=== PATIENT | male | born 1950 | race Caucasian/White ===

== ENCOUNTER 2018-12-22 09:10 | Emergency (ER) | payer MEDICARE, MEDICAID ==
[~2018-12-22] VITALS: Ht 182.9 cm; Wt 97.1 kg
[~2018-12-22 09:10] MED LIST: ALEVE220 MG PO; ASPIRIN325 MG PO; HALCION0.25 MG PO; HUMALOG100 UNITS/ IV; IMURAN50 MG PO; LANTUS100 UNITS/ SUB-Q; LISINOPRIL-HCT1 EAC1 PO; LISINOPRIL20 MG PO; LISINOPRIL40 MG PO; MEN'S MULTI-VI1 EACH PO; NOVOLOG100 UNIT/1 SUB-Q; OMEPRAZOLE20 M1 PO; TEMAZEPAM30 MG PO; TRAZODONE HCL100 MG PO; VITAMIN B-121000 MCG PO; VITAMIN B-6100 MG PO; XANAX0.25 MG PO; ZANTAC150 MG PO
--- OUTSIDE RECORDS SUMMARY | 2018-12-22 09:12 | XMS ---
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 EEdil VISIT COUNT (12 MO.) 1 RAINA Abrams TOTAL 1 NOTE: Visits indicate total known visits. ED/UCC VISIT TRACKING (12 MO.) 12/22/2018 09:[address] [facility] TYPE: Emergency COMPLAINT: - L ANKLE PAIN/INJURY INPATIENT VISIT TRACKING (12 MO.) No inpatient visits to display in this time frame [email or web address]
[2018-12-22] MEDS ORDERED: CHANTIX1 MG PO (09:26)
[2018-12-22] MEDS ORDERED: TOUJEO SOL300 UNIT/1 SUB-Q (09:26)
== END 2018-12-22 11:14 | disposition home or self-care (01) ==
LOC: ED 09:10
DX: S93.402A Sprain of unspecified ligament of left ankle, initial encounter (principal); S93.602A Unspecified sprain of left foot, initial encounter; R55 Syncope and collapse; I10 Essential (primary) hypertension; F41.9 Anxiety disorder, unspecified; E10.9 Type 1 diabetes mellitus without complications; Z86.19 Personal history of other infectious and parasitic diseases; F17.200 Nicotine dependence, unspecified, uncomplicated; Z90.49 Acquired absence of other specified parts of digestive tract; Z79.4 Long term (current) use of insulin; Z79.899 Other long term (current) drug therapy; Z79.82 Long term (current) use of aspirin; W19.XXXA Unspecified fall, initial encounter
CPT/HCPCS: 36415; 73590; 73630; 80053; 85025; 99283

== ENCOUNTER 2020-04-08 08:14 | Inpatient (IN) | payer MEDICARE, MEDICAID, OTHER ==
[~2020-04-08] VITALS: Ht 182.9 cm; Wt 97.1 kg
[~2020-04-08 08:14] MED LIST changes: +ASPIR 8181 MG PO; -ASPIRIN325 MG PO; +CHANTIX1 MG PO; +TOUJEO SOL300 UNIT/1 SUB-Q
--- OUTSIDE RECORDS SUMMARY | 2020-04-08 08:18 | XMS ---
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 Jacquelyn VISIT COUNT (12 MO.) 1 RAINA Abrams TOTAL 1 NOTE: Visits indicate total known visits. ED/UCC VISIT TRACKING (12 MO.) 04/08/2020 08:15 [facility] TYPE: Emergency COMPLAINT: - ABNORMAL LAB RESULTS INPATIENT VISIT TRACKING (12 MO.) No inpatient visits to display in this time frame [id number]
--- NOTE | 2020-04-08 11:45 | NUR ---
PATIENT ARRIVES WITH ANDREW NICHOLS/WIND FARM OPERATIONS MANAGER FROM EMERGENCY DEPARTMENT FOR ADMISSION TO ROOM 126 IN CCU FOR TREATMENT OF HYPONATREMIA AND HYPOMAGNESIUMIA. ASSESSMENT COMPLETED. VITAL SIGNS OBTAINED.
[2020-04-08] MEDS ORDERED: AZATHIOPRINE50 MG PO (13:32)
[2020-04-08] MEDS ORDERED: LISINOPRIL40 MG PO (13:33)
--- NOTE | 2020-04-08 13:34 | NUR ---
ER COVID SWAB COLLECTED NO COMPLICATIONS
--- NOTE | 2020-04-08 15:41 | EKG ---
[facility] [address] [place] [address] Signed Normal sinus rhythm Right bundle branch block Abnormal ECG When compared with ECG of 25-JAN-2017 09:06, T wave inversion now evident in Anterior leads Confirmed by BULMARO PIMENTEL MD ([id number]) on 04/08/2020 3:41:03 PM Electronically Signed By: BULMARO PIMENTEL MD 04/08/20 1541 PATIENT NAME: ROLLY LEWIS Electrocardiogram DATE OF : 50 PHYSICIAN: BULMARO PIMENTEL MD REPORT #: [id number] REPORT IS CONFIDENTIAL AND NOT TO BE RELEASED WITHOUT AUTHORIZATION
--- NOTE | 2020-04-08 17:16 | NUR ---
ASSESSMENT COMPLETED, URINAL EMPTIED. DENIES OTHER NEEDS AT THIS TIME. CALL LIGHT IN REACH, BED RAILS UP X2.
--- NOTE | 2020-04-08 17:45 | NUR ---
HAND TREMORS NOTED WHILE IN PATIENT ROOM. DR. PIMENTEL NOTIFIED OF PATIENT ETOH USE AT HOME. REQUEST PRN ATIVAN ORDERS FOR POSSIBLE ETOH WITHDRAWAL SYMPTOMS.
--- NOTE | 2020-04-08 18:02 | NUR ---
MED REC COMPLETE
--- NOTE | 2020-04-08 20:45 | NUR ---
PATIENT PROVIDED WITH EVENING MEDS. PATIENT IS ALERT AND INVOLVED WITH CARE. ACCU CHECK DONE, PATIENT CALCULATES WHAT HIS HOME DOSE WOULD BE. WHICH IS 5 UNITS, CONSISTENT WITH THE SLIDING SCALE. PATIENT REPORTS TAKING HIS 10 UNITS LONG ACTING INSULIN AT BEDTIME. ASSURED HIM TAKING IT IN THE MORNING WOULD BE OKAY. PATIENT AGREEABLE. PRN INSOMNIA MEDS PROVIDED PER REQUEST. PATIENT'S VS STABLE. URINE OUTPUT QS, USING URNAL. TOLERATING ROOM AIR. LUNGS ARE CLEAR. NO COUGH. CIWA LESS THAN 5. PATIENT PROVIDED WITH EAR PLUGS PER REQUEST. NO OTHER NEEDS AT THIS TIME. CALL LIGHT IN REACH.
--- NOTE | 2020-04-08 23:00 | NUR ---
PATIENT APPEARS TO BE SLEEPING SOUNDLY. VS STABLE. CALL LIGHT IN REACH.
--- NOTE | 2020-04-09 01:00 | NUR ---
PATIENT WOKE WHEN RN ENTERED THE ROOM. REPORTS DIFFICULTY SLEEPING DUE TO NOISES THE BED MAKES. BED UNPLUGGED. OFFERED PATIENT TO SLEEP ON THE COUCH. PATIENT WILL TRY THE BED BEING UNPLUGGED AND ALERT STAFF IF HE CONTINUES TO HAVE TROUBLE SLEEPING. URNAL EMPTIED. IV FLUIDS PER ORDER, SITE WNL. CALL LIGHT IN REACH.
--- NOTE | 2020-04-09 02:30 | NUR ---
PATIENT APPEARS TO BE SLEEPING. VS STABLE.
--- NOTE | 2020-04-09 04:45 | NUR ---
PATIENT CONTINUES TO SLEEP SOUNDLY. ALLOWED PATIENT TO REST. IV SITE WNL. VS STABLE.
--- NOTE | 2020-04-09 06:00 | NUR ---
LAB IN FOR MORNING DRAW. PATIENT REPORTS HAVING SLEPT "OKAY FOR AN HOUR OR TWO". REQUEST BREAKFAST MENU WHICH WAS PROVIDED. PATIENT DENIES ANY CONCERNS THIS MORNING. VS STABLE. IV FLUIDS PER ORDER. URNAL EMPTIED.
--- NOTE | 2020-04-09 07:30 | NUR ---
RECEIVED REPORT FROM BALL MILL MIXER. pt ORDERING BREAKFAST. CALL LIGHT WITHIN REACH.
--- NOTE | 2020-04-09 08:20 | NUR ---
ANDREW ZEPEDA IN TO DO BLOOD SUGAR AND GIVEN INSULIN (SEE MAR). pt REQUESTED "A FEW MORE UNITS" OF INSULIN.
--- NOTE | 2020-04-09 09:00 | NUR ---
CALL LIGHT ON. URINAL EMPTIED. BREAKFAST TRAY REMOVED, BREAKFAST RECORDED. PROVIDED FRESH WATER. pt STANDING AT BEDSIDE TO VOID. CALL LIGHT WITHIN REACH.
--- NOTE | 2020-04-09 09:20 | NUR ---
IN TO DO ASSESSMENT. VITALS RECORDED. ASSESMENT DONE. pt DENIES PAIN AND SOB. DISCUSSED INSULIN, pt OKAY TO TAKE WHAT IS ORDERED. MEDICATIONS GIVEN (SEE MAR). MD IN ROOM TO ASSESS, pt WILL THINK ABOUT STAYING TO DETOX. NO FURTHER REQUESTS AT THIS TIME. CALL LIGHT WITHIN REACH.
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
--- NOTE | 2020-04-09 15:02 | NUR ---
1445: PT TRANSFER TO ROOM 120 FROM CCU IN WHICH THE PT AMBULATED. HE IS ON TELE #4 SR WITH A 1ST DEGREE BLOCK AT 80. VITAL SIGNS STABLE AND THE PT DENIES ANY PAIN OR SOB. PT ORIENTED TO HIS ROOM AND THE USE OF THE CALL CUADRA. PT INSTRUCTED TO CALL BEFORE GETTING UP HE APPEARS SLIGHTLY UNSTEADY ON HIS FEET. IV INFUSING NS AT 75 ML/HR. SEE ASSESSMENT.
--- NOTE | 2020-04-09 16:21 | NUR ---
Pt states his cbg needs check as he is "high". Blood sugar checked and it is 182.
--- NOTE | 2020-04-09 21:13 | NUR ---
Pt in bed, wearing ear plugs, Coop with assessment, appropriate. On room air, lungs clear, tele#[address], SR reading. Pt has indwelling glucose meter noted on r lower abd, pt says is not working. Voiding QS dark yellow urine. turns self in bed, bruised arms healing, scabbed over areas left forearm and above AC, opsite applied. as pt was scratching them and areas were moist. procedure explained, cooperative. IV site R AC patent. CIWA score 2, no c/o etoh withdrawal. Bed alarm on. fresh fluids and call light at bedside
--- NOTE | 2020-04-09 22:16 | NUR ---
RESTING, TURNS SELF IN BED, IVF INFUSING, TELE IN PLACE, USED URINAL, AND CALLED APPROPRIATELY. CALL LIGHT AND FLUIDS AT BEDSIDE, BED ALARM ON
--- NOTE | 2020-04-09 23:41 | NUR ---
CALL LIGHT ANSWERED. PT SPILLED URINE IN HIS BED WHILE USING URINAL. PT UP TO CHAIR. FRESH LINENS PROVIDED. PT BACK TO BED. NO FURTHER NEEDS. BED ALARM ON.
--- NOTE | 2020-04-10 01:34 | NUR ---
PT AWAKES EASILY, VOIDED IN URINAL, ON ROOM AIR, NO C/O PAIN, COOP WITH ASSESSMENT. IVF INFUSING, FRESH WATER AND CALL LIGHT AT BEDSIDE
--- NOTE | 2020-04-10 05:56 | NUR ---
Pt resting at this time. On room air. IVf infusing w/o problems, tele# [address] SR reading, no c/o cp, CBG 203, received 3 units Insulin, IVF infusing, has been plasant and coop. voiding QS, no c/o pain or sob. CIWA scores 2 and 1 no s/sx withdrawal, pleasant and cooperated, Bed alarm on. fall preacutions in palce
--- NOTE | 2020-04-10 06:12 | NUR ---
alarm going off, standing at edge of bed, voided, Back to bed, alert and oriented, pleasant, follows instructions, Bead alarm on, tolerating fluids well
--- NOTE | 2020-04-10 08:04 | NUR ---
0703: Report received from Kathleen MORALES. Pt resting in his bed call pate within reach and report states the pt did well over night.
--- NOTE | 2020-04-10 08:20 | NUR ---
PATIENT IS EATING BREKAFAST, PATIENT'S ORAL CARE WAS DONE, PATIENT NEEDED NO OTHER ASSISTANCE AT THIS TIME
--- NOTE | 2020-04-10 08:30 | NUR ---
MORNING UNIT MEETING WITH , NOTIFIED OF PATIENT B/P ELEVATED AT THIS TIME. WILL RECHECK, AM MEDS PASSED.
--- NOTE | 2020-04-10 08:39 | NUR ---
CHARGE NURSE NOTIFIED WHO IS GOING TO UPDATE DR PIMENTEL OF THE BP.
--- NOTE | 2020-04-10 08:40 | NUR ---
PT EATING HIS BK AT THIS TIME. HE STATES HE SLEPT "BETTER" AND DENIES ANY NEW PROBLEMS. SEE ASSESSMENT.
--- NOTE | 2020-04-10 12:37 | NUR ---
PT RESTING IN HIS BED WATCHING TV. HE DENIES ANY PAIN, SOB OR OTHER PROBLEMS. SEE CIWA.
--- NOTE | 2020-04-10 14:02 | NUR ---
PT RESTING AND HAS NO COMPLAINTS AT THIS TIME. HE WAS REMINDED THAT HE IS TO PUT HIS MASK ON ANYTIME SOMEONE ENTERS HIS ROOM, HE PLACED HIS MASK AT THIS TIME.
--- NOTE | 2020-04-10 16:28 | NUR ---
PT DENIES ANY PROBLEMS AT THIS TIME.
--- NOTE | 2020-04-10 18:14 | NUR ---
PT EATING HIS DINNER AT THIS TIME AND IS WATCHING TV. HE DENIES ANY PROBLEMS AT THIS TIME.
--- NOTE | 2020-04-10 18:15 | NUR ---
PT HAS BEEN MOVED TO ROOM 115 AND HE STATES HE IS MUCH HAPPIER WITH THIS ROOM. HE STATES HE LIKING HIS VIEW FROM HIS WINDOW NOW.
--- NOTE | 2020-04-10 18:18 | NUR ---
PATIENT HAS BEEN USING HIS CALL LIGHT ALL DAY AND ONLY NEEDED SET UP FOR A SHOWER, HE NEEDED VERY LITTLE ASSISTANCE AFTER HIS SHOWER, PATIENT IS VERY STEADY ON HIS FEET, PATIENT WAS MOVED ROOMS AROUND 1800 AND SAYS IT IS NICE TO HAVE A BETTER VIEW THAN A BRICK WALL. NOTHING ELSE TO REPORT ABOUT THIS PATIENT.
--- NOTE | 2020-04-10 20:15 | NUR ---
PT AWAKE, NO C/O PAIN, CALM, CIWA 1, NO S/SX WITHDRAWAL. IVF INFUSING W/O PROBLEMS. ON ROOM AIR, CLEAR LUNGS, ABD SOFT. R ABD GLUCOSE MONITOR, NON WORKING. BED ALARM ON, FLUIDS AND CALL LIGHT AT BEDSIDE. TOOK MEDS W/O . ALERT AND ORIENTED, COOP.
--- NOTE | 2020-04-11 02:10 | NUR ---
AWAKES EASILY, NO C/O PAIN, NO S/SX WITHDRAWALS, COOP WITH ASSESSMENT, IVF INFUSING W/O PROBLEMS, USING URINAL, VOIDING QS. CALL LIGHT AND FLUIDS AT BEDSIDE
--- NOTE | 2020-04-11 04:22 | NUR ---
slept most of this shift. On room air, IVF infusing w/o problems. Tolerating diet and fluids, no n/v. no s/sx withdrawals. Has RLQ insulin glucose reader, non active. Independent in room, voiding large amounts of clear urine, uses urinal, pleasant and coop, Independent in room. uses call light appropriately. No c/o pain or c/o abnormal glucose levels this shift.
--- NOTE | 2020-04-11 04:22 | NUR ---
awakes easily, using urinal, voiding qs. tolerating fluids well. ivf infusing, independent in room
--- NOTE | 2020-04-11 07:30 | NUR ---
CALLED DR PIMENTEL TO INFORM OF BS OF 401, NO NEW ORDERS. ADMINISTERED MORNING MEDS AVAILABLE.
--- NOTE | 2020-04-11 10:00 | NUR ---
PATIENT WORKED WITH PT THIS MORNING. PATIENT NOW IN BED RESTING WITH EYES CLSOED. FRESH WATER GIVEN. CALL LIGHT IN REACH. NO FURTHER NEEDS AT THIS TIEM.
--- NOTE | 2020-04-11 10:07 | NUR ---
ADMINISTERED MORNING MEDS. PT HAS EARPLUGS IN FOR A NAP. DENIES CONCERNS.
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
--- NOTE | 2020-04-11 12:02 | NUR ---
PT STATED HE IS READY TO HAVE HIS BLOOD SUGAR CHECKED HE HAS ORDERED LUNCH.
--- NOTE | 2020-04-11 13:45 | NUR ---
PT ATE ALL OF LUNCH. DR PIMENETL IN TO SEE PT.
--- NOTE | 2020-04-11 15:00 | NUR ---
PT STATED HE FELT LIKE HIS BS WAS HIGH AGAIN. CHECKED 281. CALLED DR PIMENTEL AND SHE ORDERED 5 UNITS HUMALOG ONCE. PT AGREED THAT WAS PROBABLY A GOOD IDEA
--- NOTE | 2020-04-11 17:48 | NUR ---
PT SITTING UP IN BED EATING DINNER. ADMINISTERED INSULIN. DENIES CONCERNS.
--- NOTE | 2020-04-11 18:32 | NUR ---
PATIENT IN BED WATCHING TV. FRESH WATER GIVEN. CALL LIGHT IN REACH. NO FURTHER NEEDS AT THIS TIME.
--- NOTE | 2020-04-11 19:45 | NUR ---
REPORT RECEIVED FROM ANDREW ALSTON. pt INDEPENDENT IN ROOM. ASSUMED CARE OF pt. HR 70 ON TELE 4.
--- NOTE | 2020-04-11 21:17 | NUR ---
pt AWAKE RESTING IN BED. DENIES NAUSEA, RUIZ, NO TREMORS NOTED. VSS. SCHEDULED MEDICATIONS ADMINISTERED. URINAL EMPTIED. IVF INFUSING ORDERED AT THIS TIME, FLUSHED WNL, GOOD BLOOD RETURN. CALL LIGHT IN REACH. PRN SLEEP MEDICATION ADMINISTERED.
--- NOTE | 2020-04-12 00:32 | NUR ---
CHECKED ON pt. RESTING IN BED ON SIDE, EYES CLOSED, BREATHING UNLABORED. APPEARS TO BE SLEEPING.
--- NOTE | 2020-04-12 02:16 | NUR ---
CALL ONEYDA ANSWERED. EMPTIED THE URINAL. UPDATED THE BOARD.
--- NOTE | 2020-04-12 03:04 | NUR ---
pt RESTING IN BED ON SIDE, BREATHING UNLABORED. LIGHTS OFF IN ROOM.
--- NOTE | 2020-04-12 05:50 | NUR ---
pt ASSESSMENT COMPLETE. HR 79 ON TELE 4, SR. pt RESTING IN BED AWAKE, DENIES NEEDS AT THIS TIME. URINAL EMPTIED. CALL LIGHT IN REACH.
--- NOTE | 2020-04-12 06:29 | NUR ---
pt RESTED WELL THROUGHOUT SHIFT. TELE 4, NSR, HR IN 70S THROUGHOUT SHIFT. CIWA NEGATIVE. VOIDING QS. IVF INFUSING ORDERED WNL.
--- NOTE | 2020-04-12 07:39 | NUR ---
Pt awake, sitting up in bed, a&ox4. Pt on room air, respirations are even and non labored. Pt has no distress noted. Personal supplies and call light within reach.
--- NOTE | 2020-04-12 09:06 | NUR ---
PATIENT SITTING UP IN BED. VITAL SIGNS AND I&O DONE. SETS UP BATHROOM FOR SHOWER. CALL LIGHT WITHIN REACH. NO OTHER NEEDS AT THIS TIME
[2020-04-12] MEDS ORDERED: METOPROLOL TART25 MG PO (09:39)
[2020-04-12] MEDS ORDERED: CHLORDIAZEPOXID25 MG PO (09:40)
[2020-04-12] MEDS ORDERED: VITAMIN B-1100 M1 PO (09:40)
[2020-04-12] MEDS ORDERED: MAGNESIUM400 M1 PO (09:41)
== END 2020-04-12 11:05 | disposition home or self-care (01) | DRG 641 ==
LOC: ED 08:14 → CCU 11:14 → MS 04-09 14:45
PROVIDERS: ADMIT Student in an Organized Health Care Education/Training Program
DX: E87.1 Hypo-osmolality and hyponatremia (principal); F10.231 Alcohol dependence with withdrawal delirium; E83.42 Hypomagnesemia; E11.9 Type 2 diabetes mellitus without complications; I10 Essential (primary) hypertension; K21.9 Gastro-esophageal reflux disease without esophagitis; G47.00 Insomnia, unspecified; F17.210 Nicotine dependence, cigarettes, uncomplicated; Z20.828 Contact with and (suspected) exposure to other viral communicable diseases; Z79.82 Long term (current) use of aspirin; Z79.4 Long term (current) use of insulin; Z79.899 Other long term (current) drug therapy
CPT/HCPCS: 36415; 80048; 80053; 81001; 81050; 83735; 84100; 84295; 84300; 84484; 85025; 93005; 93010; 97110; 97116; 97161; 97530; 99285-25; 99406; C9803; G0480; J1650; J1815; J3475; J7030; J7500; U0002

== ENCOUNTER 2024-09-11 20:11 | Emergency (ER) | payer MEDICARE ==
[~2024-09-11] VITALS: Ht 182.9 cm; Wt 105.7 kg
[~2024-09-11 20:11] MED LIST changes: +AZATHIOPRINE50 MG PO; +CHLORDIAZEPOXID25 MG PO; +MAGNESIUM400 M1 PO; +METOPROLOL TART25 MG PO; +VITAMIN B-1100 M1 PO
[2024-09-11] MEDS ORDERED: ondansetron HCL 4 MG/2 ML VIAL IV ONE (20:30)
[2024-09-11 20:33] LABS: HEMATOCRIT 34.2 % (35.0-50.0); HEMOGLOBIN 11.6 g/dL (12.0-18.0); MCH 31.5 (27-36); MCV 92.8 fl (81-99); PLATELET COUNT 238 K/uL (140-440); RBC 3.69 M/ul (4.3-5.7); RDW 14.2 (10.5-15.0)
[2024-09-11 20:44] LABS: BASOPHILS, MANUAL DIFF 1; EOSINOPHILS, MANUAL DIFF 2; LYMPHOCYTES, MANUAL DIFF 52; MONOCYTES, MANUAL DIFF 9; NEUTROPHILS, MANUAL DIFF 36
[2024-09-11 20:46] LABS: ALBUMIN 2.7 g/dL (3.4-5.0); ALBUMIN/GLOBULIN RATIO 0.66 (1.1-2.4); ALCOHOL, MEDICAL <3 ng/dL (<3); ALKALINE PHOSPHATASE 111 U/L (46-116); ALT (SGPT) 103 U/L (14-59); ANION GAP 11.6 (7-21); AST (SGOT) 97 U/L (15-37); BILIRUBIN, TOTAL 0.3 ng/dL (0.2-1.0); CARBON DIOXIDE 26 mmol/L (21-32); CHLORIDE 102 mmol/L (98-107); GLOMERULAR FILTRATION RATE,EST 49 mL/min (>60); POTASSIUM 3.6 mmol/L (3.5-5.1); PROTEIN, TOTAL 6.8 g/dL (6.4-8.2); UREA NITROGEN 18 mg/dL (7-18)
[2024-09-11] MEDS ORDERED: SODIUM CHLORIDE 0.9% 1,000 ML IV SCH (21:15)
[2024-09-11 21:46] LABS: BILIRUBIN, URINE NEGATIVE (negative); BLOOD/HGB, URINE NEGATIVE (Negative); KETONE, URINE NEGATIVE (Negative); LEUK ESTERASE, URINE NEGATIVE (negative); NITRITE, URINE NEGATIVE (negative)
[2024-09-11 22:03] LABS: AMPHETAMINES, URINE NEGATIVE (NEGATIVE); BARBITURATES, URINE NEGATIVE (NEGATIVE); BENZODIAZEPINE, URINE NEGATIVE (NEGATIVE); BUPRENORPHINE, URINE NEGATIVE (NEGATIVE); CANNABINOID, URINE POSITIVE (NEGATIVE); COCAINE, URINE NEGATIVE (NEGATIVE); ECSTASY, URINE NEGATIVE (NEGATIVE); FENTANYL, URINE NEGATIVE (NEGATIVE); METHADONE, URINE NEGATIVE (NEGATIVE); OPIATES, URINE NEGATIVE (NEGATIVE); OXYCODONE, URINE NEGATIVE (NEGATIVE); PHENCYCLIDINE, URINE NEGATIVE (NEGATIVE)
[2024-09-11] MEDS ORDERED: ONDANSETRON 4 MG HOME.PACK SL ONE (22:45)
[2024-09-11 22:57] VITALS: BP 159/62
== END 2024-09-11 22:57 | disposition home or self-care (01) ==
LOC: ED 20:11
PROVIDERS: Emergency Medicine
DX: E10.649 Type 1 diabetes mellitus with hypoglycemia without coma (principal); I10 Essential (primary) hypertension; F17.200 Nicotine dependence, unspecified, uncomplicated; Z79.4 Long term (current) use of insulin; Z79.82 Long term (current) use of aspirin; Z79.899 Other long term (current) drug therapy
CPT/HCPCS: 36415; 80053; 80307; 81003; 82140; 85025; 96374; 99285-25; A9270; G0480; J2405